=== PATIENT | male | born 1995 | race Caucasian/White ===

== ENCOUNTER → 2017-02-12 | Outpatient (CLI) | payer OTHER ==
[~2017-02-12] MED LIST: GADOBUTROL 10mMol/10ml INJECTION IV ONE; IOTHALAMATE MEGLUMINE 60% (600mg/ml) 30ml INJ IV ONE; NORMAL SALINE 50 ML IV ONE
--- NOTE | 2017-02-12 17:04 | DI ---
Indication:ITS.REASON: M75.42 IMPINGEMENT SYNDROME OF SHOULDER REGION LEFT Procedure:ARTHROGRAM SHOULDER LT W/FL. SHOULDER INJECTION FOR MRI ARTHROGRAM: After discussing the details of the procedure, including the risks, the patient wished to proceed. Informed consent was obtained. A preprocedural timeout was performed to confirm the correct patient and procedure. Using aseptic technique, local lidocaine anesthetic, and fluoroscopic guidance throughout, a 22-gauge spinal needle was directed through the rotator cuff interval and into the joint of the left shoulder. A small amount of x-ray contrast was injected to confirm proper intra-articular placement of the needle tip. A fluoroscopic image was obtained. Following this, 8 cc of dilute gadolinium were slowly instilled within the joint of the left shoulder. The needle was removed. The patient tolerated this procedure well. Following this, the patient was taken by wheelchair to MRI for his scan. Please see the separate MRI report. Impression: Technically successful left intra-articular shoulder joint injection for a MRI arthrogram. Fluoroscopy dose: 6.22 mGy (Cumulative air kerma) Wil Harden RPA/JANET performed this under my personal supervision. .
--- NOTE | 2017-02-12 17:21 | DI ---
Indication: ITS.REASON: M75.42 IMPINGEMENT SYNDROME OF SHOULDER REGION LEFT PROCEDURE: MRI SHOULDER LEFT W/CONTRAST: Encounter: Initial Comparison: None Technique: Multiplanar multisequence MR imaging of the left shoulder was performed with intra-articular contrast. Arthrogram injection is described in a separate procedural report. Findings: The long head biceps tendon is intact and located within the bicipital groove. The subscapularis tendon is intact. The supraspinatus tendon appears normal. Infraspinatus tendon is intact. The teres minor tendon is normal. Small Hill-Sachs impaction fracture which appears subacute. Bone marrow signal intensity is otherwise normal. Acromioclavicular joint is normal. No fluid in the subacromial subdeltoid bursa. No labral tear identified. Muscular bulk and signal intensity is normal. Impression: Small Hill-Sachs impaction fracture consistent with prior dislocation. No rotator cuff or labral tear. .
== END ==
LOC: IMA 14:26
PROVIDERS: ATTEND Orthopaedic Surgery
DX: S42.292A Other displaced fracture of upper end of left humerus, initial encounter for closed fracture (principal); X58.XXXA Exposure to other specified factors, initial encounter; Y93.9 Activity, unspecified; Y92.9 Unspecified place or not applicable; Y99.9 Unspecified external cause status; M75.42 Impingement syndrome of left shoulder
CPT/HCPCS: 23350; 73222; 77002; A9585; J7050; Q9961